=== PATIENT | female | born 1965 | race Two or more races ===

== ENCOUNTER 2019-10-17 05:36 | Day surgery (SDC) | payer OTHER ==
[~2019-10-17 05:36] MED LIST: ADVIL PO; PANADOL
== END 2019-10-17 17:10 | disposition home or self-care (01) ==
LOC: CIR.AMB 05:36 → EDBD 12:15 → CIR.AMB 12:15 → ADM 12:15 → CIR.AMB 17:10
PROVIDERS: ATTEND Orthopaedic Surgery Sports Medicine
DX: S83.242A Other tear of medial meniscus, current injury, left knee, initial encounter (principal); Z20.828 Contact with and (suspected) exposure to other viral communicable diseases

== ENCOUNTER 2020-04-23 07:30 | Day surgery (SDC) | payer OTHER | END 2020-04-23 20:50 | disposition home or self-care (01) | LOC: CIR.AMB 07:30 | PROVIDERS: ATTEND Orthopaedic Surgery Sports Medicine | DX: M94.261 Chondromalacia, right knee (principal); M67.51 Plica syndrome, right knee; Z20.828 Contact with and (suspected) exposure to other viral communicable diseases ==